=== PATIENT | female | born 1960 | race African-American/Black ===

== ENCOUNTER 2016-07-25 11:02 | Emergency (ER) | payer OTHER ==
[~2016-07-25] VITALS: Ht 160 cm; Wt 81.6 kg
[~2016-07-25 11:02] MED LIST: ADVAIR DISKUS 21 DSK IH; ADVAIR DISKUS 51 DSK IH; ATROVENT 00.5 MG/3 M INH; CLINDAMYCIN150 MG; COUMADIN10 MG PO; COUMADIN5 M1 PO; DELTASONE; DELTASONE10 M1 PO; NEURONTIN100 MG PO; NEXIUM20 MG PO; NORCO 10/325 MG1 TAB PO; PHENERGAN25 M1; PREDNISONE10 MG PO; PREDNISONE20 MG PO; PROAIR HFA0.09 MG/Ac IH; VICODIN 5/500 M1 TAB; XARELTO20 MG PO
[2016-07-25 11:34] VITALS: BP 129/98
--- NOTE | 2016-07-25 11:57 | NUR ---
PATIENT PRESENTS TO ED DUE LEFT LEG PAIN THAT SHOOTS UP INTO LEFT HEAD X3 DAYS. HX ASTHMA. DENIES N/V/D; SKIN IS PINK/WARM/DRY; AAOX4 WITH EVEN AND STEADY GAIT; LUNGS CLEAR BL; HR EVEN AND REGULAR; PT DENIES ANY FEVER, CP, OR COUGH AT THIS TIME; PATIENT STATES PAIN OF 8/10 AT THIS TIME; PATIENT POSITIONED FOR COMFORT; HOB ELEVATED; BEDRAILS UP X2; BED DOWN. ER MD MADE AWARE OF PT STATUS.
[2016-07-25] MEDS ORDERED: NACL 0.9% 1,000 ML IV SCH (12:26)
[2016-07-25] MEDS ORDERED: FAMOTIDINE 20 MG/2 ML VIAL IVP ONE (12:30)
[2016-07-25] MEDS ORDERED: MORPHINE SULFATE 4 MG/ML SYR IVP ONE (12:30)
--- NOTE | 2016-07-25 12:41 | NUR ---
DR. MISHRA AWARE OF THE RESULT OF URINE DIPSTICK AND PREG
--- NOTE | 2016-07-25 13:00 | NUR ---
XRAY AT BEDSIDE
--- NOTE | 2016-07-25 13:15 | NUR ---
PT HAS RIGHT CHEST ANY CATH, CHARGE NURSE FRANCHESCA TRY TO ACCESS, UNABLE NO BLOOD RETURN, DR. MISHRA AWARE, PT AAO.
--- NOTE | 2016-07-25 13:17 | NUR ---
CHARGE NURSE ALSO TRIED TO PUT PERIPHERAL LINE BUT UNABLE
--- NOTE | 2016-07-25 13:41 | NUR ---
LAB AT BEDSIDE
--- NOTE | 2016-07-25 15:30 | NUR ---
PT REFUSED ANOTHER IV INSERTION I JUST WANT TO KNOW MY LAB RESULT, EXPLAIN MD WILL TALK TO HER, PT AAO, PAIN LEVEL 01/14
--- NOTE | 2016-07-25 15:34 | NUR ---
DR. MISHRA AT BEDSIDE TALKING TO PT
[2016-07-25 15:45] VITALS: BP 122/82
--- NOTE | 2016-07-25 15:46 | NUR ---
PT VERBALIZED IM READY TO GO , EXPLAINED WILL TALK TO DR. MISHRA ABOUT IT, PT LOOKING AT HER PHONE AT THIS TIME.
--- NOTE | 2016-07-25 15:47 | NUR ---
TALKED TO DR. MISHRA THAT PT IS READY TO GO AND WAITING FOR HER D/C INSTRUCTION.
--- NOTE | 2016-07-25 15:56 | NUR ---
PT SAYS I WILL JUST GO OUT IN THE LOBBY AND USE MY PHONE THERE,CLAIMED I WILL BE BACK, OFFER TO USE THE HOSPITAL PHONE BUT PT SAYS NO.
--- NOTE | 2016-07-25 16:00 | NUR ---
DR. MISHRA WITH D/C INSTRUCTION, LOOK FOR THE PT IN THE LOBBY ,DR. MISHRA ALSO LOOK FOR THE PT IN THE LOBBY, UNABLE TO FIND PT, CALL PLACE TO [facility], WHERE SHE IS , PER PT SHE IS COMING BACK TO GET THE PRESCRIPTION, PT AWARE THERE IS A PRESCRIPTION BRIAN. TALKED TO FRONT LOBBY THAT PT IS COMING BACK TO [employer] [facility] TO LET HER IN.
--- NOTE | 2016-07-25 16:42 | NUR ---
LEAVE MESSAGE IN THE PT PHONE TO FIND OUT WHEN SHE IS COMING TO ORDER ENTRY SPECIALIST THE PRESCRIPTION.
== END 2016-07-25 16:00 | disposition home or self-care (01) ==
LOC: MED 11:02
DX: M79.605 Pain in left leg (principal); R03.0 Elevated blood-pressure reading, without diagnosis of hypertension; M79.601 Pain in right arm; M79.602 Pain in left arm; R07.89 Other chest pain; J44.9 Chronic obstructive pulmonary disease, unspecified; J45.909 Unspecified asthma, uncomplicated; K21.9 Gastro-esophageal reflux disease without esophagitis; Z86.711 Personal history of pulmonary embolism; Z88.0 Allergy status to penicillin; Z79.899 Other long term (current) drug therapy; Z90.710 Acquired absence of both cervix and uterus
CPT/HCPCS: 36415; 71010; 80053; 81001; 81025; 82150; 82553; 83690; 83880; 84484; 85025; 85379; 85610; 85730; 93005; 99285; J7030